=== PATIENT | male | born 1970 | race Caucasian/White ===

== ENCOUNTER 2019-08-18 02:28 | Inpatient (IN) | payer OTHER ==
[~2019-08-18] VITALS: Ht 182.9 cm; Wt 99.4 kg
[2019-08-18 02:32] VITALS: BP 136/88
[2019-08-18 03:33] LABS: ABSOLUTE BASOPHILS 0.1 thou/uL (0.0-0.2); ABSOLUTE EOSINOPHILS 0.1 thou/uL (0.0-0.7); ABSOLUTE MONOCYTES 1.1 thou/uL (0.0-1.2); ABSOLUTE NEUTROPHILS 13.6 thou/uL (1.6-8.1); BASOPHILS 0.7 %; EOSINOPHILS 0.8 %; HEMATOCRIT 47.7 % (42.0-52.0); HEMOGLOBIN 16.5 gm/dL (14.0-18.0); LYMPHOCYTES 11.6 %; MCH 31.2 pg (26.0-34.0); MCHC 34.5 g/dL (28.0-37.0); MCV 90.4 fL (80.0-100.0); MONOCYTES 6.7 %; MPV 9.3 fl. (7.2-11.1); NUCLEATED RBCS 0 /100WBC; PLATELET COUNT* 243 thou/uL (150-400); POLYS 80.2 %; RBC 5.28 mil/uL (4.50-6.00); RDW-CV 14.2 % (10.5-14.5); WBC 16.9 thou/uL (4.0-11.0)
[2019-08-18 03:34] LABS: CALCIUM 8.2 mg/dL (8.5-10.1); CREATININE 1.3 mg/dL (0.6-1.3); POTASSIUM 3.9 mmol/L (3.5-5.1)
[2019-08-18 03:39] LABS: ALBUMIN 3.5 g/dL (3.4-5.0); TOTAL BILIRUBIN 0.3 mg/dL (<0.1-1.0)
[2019-08-18 06:48] LABS: URINE BILIRUBIN NEGATIVE (Negative); URINE BLOOD NEGATIVE (Negative); URINE CLARITY CLEAR; URINE COLOR YELLOW; URINE GLUCOSE-RANDOM NEGATIVE (Negative); URINE KETONES NEGATIVE (Negative); URINE LEUKOCYTES-REFLEX NEGATIVE (Negative); URINE NITRITE-REFLEX NEGATIVE (Negative); URINE PROTEIN NEGATIVE (Negative); URINE UROBILINOGEN 0.2 E.U./dl (0.2-1.0)
--- NOTE | 2019-08-18 08:52 | EKG ---
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
[2019-08-18 09:10] VITALS: BP 111/72; BP 120/84
--- NOTE | 2019-08-18 17:47 | NUR ---
PATIENT RESTING IN BED. PATIENT IS UP WITH STANDBY ASSIST TO BATHROOM. PATIENT HAS LAP APPENDECTOMY TODAY WITHOUT INCIDENT. PATIENT HAS SHAUNA DRAIN WITH SMALL AMOUNT OF SS DRAINAGE. PATIENT IS TOLERATING CLEAR LIQUID DIET. PATIENT HAS COMPLAINTS OF PAIN TREATED ADEQUATELY WITH MEDICATION. PATIENT DENIES ANY NEEDS AT THIS TIME. CALL LIGHT WITHIN REACH.
[2019-08-18 18:58] VITALS: BP 118/76
[2019-08-18 20:00] VITALS: BP 123/80
[2019-08-19] VITALS: BP 112/82
--- NOTE | 2019-08-19 04:10 | NUR ---
ASSUMED CARE OF PT AFTER REPORT AT 1930. PT A&OX4. VSS. PHYSICAL ASSESSMENT COMPLETED AND CHARTED. PT ON O2 AT 3L NC. PT ON MEDSURG STATUS. PT UPSTANDBY. PT COMPLAINED OF ABDOMINAL PAIN-MED GIVEN PER JUN. MAINTAINED ON CLEAR LIQUID DIET. CALL LIGHT WITHIN REACH.
[2019-08-19 05:30] LABS: HEMATOCRIT 41.4 % (42.0-52.0); MCH 30.8 pg (26.0-34.0); MCHC 33.8 g/dL (28.0-37.0); MCV 91.1 fL (80.0-100.0); MPV 8.8 fl. (7.2-11.1); NUCLEATED RBCS 0 /100WBC; PLATELET COUNT* 208 thou/uL (150-400); RBC 4.55 mil/uL (4.50-6.00); RDW-CV 14.2 % (10.5-14.5); WBC 15.8 thou/uL (4.0-11.0)
[2019-08-19 06:59] LABS: ABSOLUTE LYMPHOCYTES 2.7 thou/uL (0.8-5.3); ABSOLUTE MONOCYTES 0.5 thou/uL (0.0-1.2); ABSOLUTE NEUTROPHILS 12.6 thou/uL (1.6-8.1)
[2019-08-19 07:00] LABS: PLATELET ESTIMATE ADEQUATE
[2019-08-19 08:15] VITALS: BP 121/67
--- NOTE | 2019-08-19 08:58 | OP ---
[facility] [address] [place] [address] OPERATIVE REPORT Name: KATRINA WALL Room: [address] IN M.R.#: [id number] Admission: 08/18/19 Attend Phys: Liliana De Dios DO Discharge: Date of : 68 Report #: [id number] THIS REPORT FOR: //name// cc: TANNER Chavez family physician/PCP TANNER Chavez family physician/PCP ~ THIS REPORT FOR: //name// CC: Liliana HART physician/PCP DICTATED BY: Tk Garza DO DATE OF SERVICE: 08/18/2019 PREOPERATIVE DIAGNOSIS: Acute appendicitis. POSTOPERATIVE DIAGNOSIS: Acute appendicitis. SURGEON: Liliana De Dios DO CLINICAL MEDICAL TRANSCRIPTIONIST: Tk Garza, PGY4. OPERATION PERFORMED: Laparoscopic appendectomy. ANESTHESIA: General and local. ESTIMATED BLOOD LOSS: 10 mL. SPECIMEN: Appendix. COMPLICATIONS: None. TUBES: 15-Qatari SHAUNA drain placed. INDICATIONS: The patient is a 49-year-old male who presented with several hours of abdominal pain localized to the right lower quadrant. He had a leukocytosis. CT scan demonstrated acute appendicitis. He was informed of the risks and benefits of this procedure and decided to proceed with surgery. DESCRIPTION OF PROCEDURE: After informed consent was obtained, the patient was brought to the operating room and placed in the supine position. SCDs were on and running. The patient received a dose of Zosyn in preop. General anesthesia was administered. The patient was intubated without difficulty. He was prepped and draped in the usual sterile fashion. A surgical pause was held to confirm proper patient and procedure. Infraumbilical skin was elevated and anesthetized with 0.5% Marcaine, incised with an 11 blade. Dissection was bluntly carried [facility] [address] [place] [address] OPERATIVE REPORT Name: KATRINA WALL Room: [address] IN .R.#: [id number] Admission: 08/18/19 Attend Phys: Liliana De Dios DO Discharge: Date of : 68 Report #: [id number] down until the fascia was identified. This was elevated with 2 Kochers and incised using cautery. Peritoneum was bluntly entered using a Alesia. A 0 Vicryl was used as a stay stitch on either side of the fascia. Lori trocar was introduced. Abdomen was insufflated. Brief exploration of the abdomen was undertaken. There were no abnormalities in the upper quadrants; however, in the pelvis and in the right lower quadrant, there was purulent fluid. A 5 mm port was placed in the left lower quadrant under direct visualization as well as the suprapubic region. Laparoscopic Babcocks were used to sweep the small bowel out of the way. The patient was positioned head down and left side down. The appendix was identified and noted to be curled on itself and densely adherent to surrounding tissues. A suction microsystems engineer was used to bluntly sweep away the appendix from surrounding tissues. The denser bands of adhesions were taken down using hook cautery. This method of dissection using blunt sweeping with the suction microsystems engineer was used extensively until the base of the appendix was mostly dissected free. The mesentery was mostly obliterated; however, what appeared to be the appendiceal artery, was isolated and a white load 45 mm [employer] stapler was fired across this. At this point, the appendix became loose from the cecum without clear visualization of the base. Further dissection was carried down and it seemed that the base was previously obliterated or included in the portion of the staple line. A small stump of appendix was elevated and a 45 mm purple load was fired across this. This portion of the specimen was also included with sent specimen. The surrounding cecum appeared healthy. The staple lines were hemostatic. The right lower quadrant and pelvis were thoroughly suctioned and irrigated, and continued to be dry. A 15-Qatari SHAUNA drain was placed through the suprapubic incision into the right lower quadrant. The abdomen was desufflated. The left lower quadrant port was removed under direct visualization. The appendix, that was placed within an EndoCatch bag, was removed through the umbilicus. Lori port was removed. Previous stay sutures were replaced with Kochers. A single of [id number] using 0 Vicryl was used to approximate the fascia at the umbilicus. Skin was closed using 4-0 Monocryl. The drain stitch was a 2-0 nylon. Wounds were cleansed and dressed with Mastisol, Steri-Strips, 4 x 4's, and Tegaderms. All counts were correct. The patient tolerated the procedure well and was transferred to the PACU in stable condition. <ELECTRONICALLY SIGNED> By: Liliana De Dios DO 08/19/19 0858 1339 1413Cdiana De Dios DO /nt
[2019-08-19 12:00] VITALS: BP 133/73
[2019-08-19 12:18] VITALS: BP 133/73
[2019-08-19] MEDS ORDERED: AUGMENTIN 875-1 EACH PO (12:51)
[2019-08-19] MEDS ORDERED: OXYCODONE HCL 55 MG PO (12:52)
--- NOTE | 2019-08-19 13:33 | NUR ---
DISCHARGED IN STABLE CONDITION. DISCHARGE INSTRUCTIONS, WOUND CARE INSTRUCTIONS AND RXS SENT WITH PATIENT. VERBALIZES UNDERSTANDING.
== END 2019-08-19 13:23 | disposition home or self-care (01) | DRG 343 ==
LOC: M.ERS 02:28 → M.TBA-ER 05:27 → M.2W 05:27
PROVIDERS: Personal Emergency Response Attendant; ADMIT Surgery
PROC: 0DTJ4ZZ Resection of Appendix, Percutaneous Endoscopic Approach (ICD-10-PCS; principal; 2019-08-18)
DX: K35.80 Unspecified acute appendicitis (principal); F17.210 Nicotine dependence, cigarettes, uncomplicated; F12.90 Cannabis use, unspecified, uncomplicated; Z83.3 Family history of diabetes mellitus; Z79.899 Other long term (current) drug therapy

== ENCOUNTER 2019-08-22 17:49 | Inpatient (IN) | payer OTHER ==
[~2019-08-22] VITALS: Ht 182.9 cm; Wt 93.9 kg
[~2019-08-22 17:49] MED LIST: AUGMENTIN 875-1 EACH PO; OXYCODONE HCL 55 MG PO
[2019-08-22 18:01] VITALS: BP 137/94
[2019-08-22 18:17] LABS: ABSOLUTE BASOPHILS 0.2 thou/uL (0.0-0.2); ABSOLUTE EOSINOPHILS 0.2 thou/uL (0.0-0.7); ABSOLUTE LYMPHOCYTES 1.2 thou/uL (0.8-5.3); ABSOLUTE MONOCYTES 1.3 thou/uL (0.0-1.2); ABSOLUTE NEUTROPHILS 12.5 thou/uL (1.6-8.1); EOSINOPHILS 1.4 %; HEMATOCRIT 51.3 % (42.0-52.0); HEMOGLOBIN 17.8 gm/dL (14.0-18.0); LYMPHOCYTES 7.9 %; MCHC 34.8 g/dL (28.0-37.0); MCV 89.1 fL (80.0-100.0); MONOCYTES 8.6 %; MPV 8.8 fl. (7.2-11.1); NUCLEATED RBCS 0 /100WBC; PLATELET COUNT* 312 thou/uL (150-400); POLYS 81.1 %; RBC 5.75 mil/uL (4.50-6.00); RDW-CV 13.4 % (10.5-14.5); WBC 15.5 thou/uL (4.0-11.0)
[2019-08-22 18:26] LABS: CALCIUM 8.4 mg/dL (8.5-10.1); POTASSIUM 3.9 mmol/L (3.5-5.1)
[2019-08-22 18:38] LABS: ALBUMIN 2.7 g/dL (3.4-5.0); TOTAL BILIRUBIN 0.6 mg/dL (<0.1-1.0); TOTAL PROTEIN 7.6 g/dL (6.4-8.2)
[2019-08-22 19:55] LABS: URINE BILIRUBIN NEGATIVE (Negative); URINE BLOOD NEGATIVE (Negative); URINE CLARITY CLEAR; URINE COLOR YELLOW; URINE GLUCOSE-RANDOM NEGATIVE (Negative); URINE KETONES 2+ (Negative); URINE LEUKOCYTES-REFLEX NEGATIVE (Negative); URINE NITRITE-REFLEX NEGATIVE (Negative); URINE PROTEIN NEGATIVE (Negative); URINE SPECIFIC GRAVITY <= 1.005 (1.005-1.030); URINE UROBILINOGEN 0.2 E.U./dl (0.2-1.0)
[2019-08-22 21:30] VITALS: BP 98/62
--- NOTE | 2019-08-22 21:30 | NUR ---
RN THAT IS TAKING PT STATED HE NEEDED 10 MINUTES PRIOR TO REPORT.
[2019-08-23 05:36] LABS: MCH 31.1 pg (26.0-34.0); MCHC 34.2 g/dL (28.0-37.0); MCV 90.8 fL (80.0-100.0); MPV 8.4 fl. (7.2-11.1); RBC 4.84 mil/uL (4.50-6.00); RDW-CV 13.4 % (10.5-14.5); WBC 10.2 thou/uL (4.0-11.0)
[2019-08-23 05:41] LABS: HEMOGLOBIN 15.1 gm/dL (14.0-18.0)
[2019-08-23 06:17] LABS: ALBUMIN 2.3 g/dL (3.4-5.0); POTASSIUM 3.2 mmol/L (3.5-5.1); TOTAL BILIRUBIN 0.6 mg/dL (<0.1-1.0); TOTAL PROTEIN 6.3 g/dL (6.4-8.2)
--- NOTE | 2019-08-23 06:22 | NUR ---
PATIENT ARRIVED ON UNIT AT 2145 FROM ED. ORDERED MEDICATIONS NOT ADMINISTERED IN ER, STARTED ON UNIT. PATIENT RESTING IN BED USING INCENTIVE SPIROMETER Q1H. PATIENT'S SURGICAL INCISIONS COVERED WITH STERI-STRIPS, SHAUNA DRAIN IN PLACE AND DRAINING WELL. FLUIDS AND ANTIBIOTICS INFUSING. PAIN WELL CONTROLLED. PATIENT REFUSED ADDITIONAL SCHEDULED PAIN MEDICATION. MED SURG STATUS
[2019-08-23 07:44] LABS: MAGNESIUM 2.1 mg/dL (1.8-2.4)
[2019-08-23 08:00] VITALS: BP 118/84
--- NOTE | 2019-08-23 14:58 | EKG ---
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 /EPI
[2019-08-23 16:00] VITALS: BP 121/75
--- NOTE | 2019-08-23 16:51 | NUR ---
SPOKE WITH . PT.LIVES WITH HER IN A MOBILE HOME. IS NORMALLY INDEPENDENT. RECENTLY HAD A LAP APPY. HASN'T FELT WELL SINCE THEN, SHE STATED. USES NO DME AT HOME. IS PT.PAY. TOLD ,ABOUT [employer]. THEY WILL SCRREN HIM TO SEE IF HE WOULD QUALIFY FOR MEDICAID.
--- NOTE | 2019-08-23 18:10 | NUR ---
PT HAS BEEN RESTING TODAY. PT HAS NOT HAD MUCH OF AN APPETITE. DENIES PAIN BUT C/O NAUSEA. 150 SEROUS DRAINAGE OUT OF SHAUNA TO LLQ. PT DID HAVE LOOSE BM TODAY. COUGH STILL PRODUCTIVE CLEAR. TESSALON PERLES HELP SOME. VSS ON RA. PT TOLERATING DIET APPROPRIATELY.
[2019-08-23 20:30] VITALS: BP 136/84
[2019-08-24 05:59] LABS: ABSOLUTE BASOPHILS 0.1 thou/uL (0.0-0.2); ABSOLUTE EOSINOPHILS 0.6 thou/uL (0.0-0.7); ABSOLUTE LYMPHOCYTES 1.7 thou/uL (0.8-5.3); ABSOLUTE NEUTROPHILS 6.1 thou/uL (1.6-8.1); BASOPHILS 0.8 %; EOSINOPHILS 6.4 %; HEMATOCRIT 39.9 % (42.0-52.0); HEMOGLOBIN 13.6 gm/dL (14.0-18.0); LYMPHOCYTES 17.8 %; MCH 30.6 pg (26.0-34.0); MCHC 34.1 g/dL (28.0-37.0); MCV 89.9 fL (80.0-100.0); MONOCYTES 10.2 %; MPV 9.1 fl. (7.2-11.1); NUCLEATED RBCS 0 /100WBC; PLATELET COUNT* 269 thou/uL (150-400); POLYS 64.8 %; RBC 4.44 mil/uL (4.50-6.00); RDW-CV 13.5 % (10.5-14.5); WBC 9.3 thou/uL (4.0-11.0)
[2019-08-24 06:14] LABS: CALCIUM 7.8 mg/dL (8.5-10.1); CREATININE 0.9 mg/dL (0.6-1.3); MAGNESIUM 1.7 mg/dL (1.8-2.4); POTASSIUM 3.4 mmol/L (3.5-5.1)
--- NOTE | 2019-08-24 07:10 | NUR ---
PT A+OX4. MINIMAL PAIN REPORTED. PT REPORTED 2 LOOSE BMS THIS SHIFT. MILD DISCOMFORT DURING BM ONLY. PT CAME BACK NEGATIVE FOR COVID PER TEST THIS AM. PT STILL REPORTS PRODUCTIVE COUGH- THICK WHITE MUCUS. ABLE TO GET SOME REST. CALL LIGHT IN REACH. HOURLY ROUNDING FOR SAFETY.
[2019-08-24 08:20] VITALS: BP 140/77
--- NOTE | 2019-08-24 16:01 | NUR ---
ASSUMED CARE OF THE PT @ 0700. PT IS A/OX4. DENIES PAIN. MID ADBOMEN AND LLQ LAP INCISION WELL APPROXIMATED WITH STERI STRIP. PT IS TOLERATING A FULL LIQUID DIET. SOME NAUSEA THE AM THAT HAS RESOLVED. DENIES THE NEED FOR NAUSEA MEDS. LT AC IV LEAKING NEW IV PLACED IN LT HAND INFUSING 1/2 NS @ 42 CC/HR. CONTINUES ON IV ABTS.TOLERATING WELL. PT UP AD GIULIANA TO BATHROOM. ORDER FOR REGULAR DIET FOR DINNER.PT TO BE DISCHARGE IF TOLERATING REGULAR DIET. SHAUNA DRAIN INTACT TO MID PUBIC AREA. DRAINING SM AMTS OF SEROSANGINOUS FLUID. RESTING QUIETLY IN BED AT THIS TIME WITH CALL LIGHT IN REACH. BED LOW AND LOCKED. WILL CONTINUE TO OMNITOR.
[2019-08-24 18:26] VITALS: BP 140/77
--- NOTE | 2019-08-24 19:55 | NUR ---
PATIENT GIVEN DISCHARGE ORDERS AND PAPERWORK BY NATASHA BRADSHAW DAY SHIFT RN. CAME BY PERSONAL CAR TO TAKE PATIENT HOME. PT ESCORTED OUT BY STAFF VIA W/CHAIR AT 1930.
== END 2019-08-24 19:30 | disposition home or self-care (01) | DRG 388 ==
LOC: M.ERS 17:49 → M.ORTHSURG 19:51 → M.TBA-ER 19:51 → M.ORTHSURG 21:30
PROVIDERS: Family Medicine; ADMIT Surgery
DX: K56.7 Ileus, unspecified (principal); J18.9 Pneumonia, unspecified organism; E86.0 Dehydration; G47.00 Insomnia, unspecified; Z20.828 Contact with and (suspected) exposure to other viral communicable diseases; Z90.49 Acquired absence of other specified parts of digestive tract; Z79.899 Other long term (current) drug therapy

== ENCOUNTER 2019-09-07 11:57 | Observation (INO) | payer OTHER ==
[~2019-09-07] VITALS: Ht 182.9 cm; Wt 88.9 kg
[2019-09-07 12:02] VITALS: BP 138/101
[2019-09-07 12:29] LABS: ABSOLUTE BASOPHILS 0.2 thou/uL (0.0-0.2); ABSOLUTE EOSINOPHILS 0.3 thou/uL (0.0-0.7); ABSOLUTE LYMPHOCYTES 2.9 thou/uL (0.8-5.3); ABSOLUTE NEUTROPHILS 10.4 thou/uL (1.6-8.1); BASOPHILS 1.4 %; EOSINOPHILS 1.9 %; HEMATOCRIT 48.9 % (42.0-52.0); HEMOGLOBIN 16.6 gm/dL (14.0-18.0); LYMPHOCYTES 19.3 %; MCH 30.4 pg (26.0-34.0); MCHC 33.9 g/dL (28.0-37.0); MCV 89.8 fL (80.0-100.0); MONOCYTES 6.9 %; MPV 8.8 fl. (7.2-11.1); NUCLEATED RBCS 0 /100WBC; PLATELET COUNT* 403 thou/uL (150-400); POLYS 70.5 %; RBC 5.45 mil/uL (4.50-6.00); RDW-CV 13.5 % (10.5-14.5); WBC 14.8 thou/uL (4.0-11.0)
[2019-09-07 12:29] LABS: URINE BLOOD NEGATIVE (Negative); URINE CLARITY CLEAR; URINE COLOR YELLOW; URINE GLUCOSE-RANDOM NEGATIVE (Negative); URINE KETONES NEGATIVE (Negative); URINE LEUKOCYTES-REFLEX NEGATIVE (Negative); URINE NITRITE-REFLEX NEGATIVE (Negative); URINE PROTEIN NEGATIVE (Negative); URINE SPECIFIC GRAVITY >= 1.030 (1.005-1.030); URINE UROBILINOGEN 0.2 E.U./dl (0.2-1.0)
[2019-09-07 12:32] LABS: ICTOTEST (BILI CONFIRMATORY) Negative (Negative); URINE BILIRUBIN 2+ (Negative)
[2019-09-07 12:33] LABS: CALCIUM 8.8 mg/dL (8.5-10.1)
[2019-09-07 12:46] LABS: ALBUMIN 3.5 g/dL (3.4-5.0); TOTAL BILIRUBIN 0.5 mg/dL (<0.1-1.0); TOTAL PROTEIN 7.8 g/dL (6.4-8.2)
[2019-09-07 14:48] VITALS: BP 122/84
--- NOTE | 2019-09-07 15:37 | EKG ---
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 : 1970 Requested By: Merline Kerr Order Number: [id number] MD: Toan Browne Measurements Intervals [place] Rate: 66 P: 44 DC: 183 QRS: 47 QRSD: 102 T: 21 QT: 421 QTc: 442 Interpretive Statements Sinus rhythm Abnormal R-wave progression, early transition Inferior infarct, old possible Baseline wander in lead(s) V2 Compared to ECG 08/22/2019 18:03:42 Myocardial infarct finding now present Electronically Signed On 09-07-2019 15:35:37 CDT by Toan Browne [email or web address] <ELECTRONICALLY SIGNED> By: Toan Browne MD, FACC 09/07/19 1535 1356 1356 Toan Browne MD, FAC /EPI
[2019-09-07 20:00] VITALS: BP 131/86
[2019-09-08 06:11] LABS: HEMATOCRIT 42.1 % (42.0-52.0); MCH 30.2 pg (26.0-34.0); MCHC 33.4 g/dL (28.0-37.0); MCV 90.5 fL (80.0-100.0); MPV 9.2 fl. (7.2-11.1); RBC 4.65 mil/uL (4.50-6.00); RDW-CV 13.7 % (10.5-14.5); WBC 9.4 thou/uL (4.0-11.0)
[2019-09-08 06:15] LABS: HEMOGLOBIN 14.1 gm/dL (14.0-18.0)
[2019-09-08 06:25] LABS: ALBUMIN 2.7 g/dL (3.4-5.0); CALCIUM 8.2 mg/dL (8.5-10.1); TOTAL BILIRUBIN 0.5 mg/dL (<0.1-1.0); TOTAL PROTEIN 6.1 g/dL (6.4-8.2)
[2019-09-08 07:45] VITALS: BP 121/76
[2019-09-08] MEDS ORDERED: FLAGYL500 M1 PO (10:57)
[2019-09-08] MEDS ORDERED: CIPRO500 M1 PO (10:57)
[2019-09-08 11:03] VITALS: BP 121/76
== END 2019-09-08 13:15 | disposition home or self-care (01) ==
LOC: M.ERS 11:57 → M.3W 13:46 → M.TBA-ER 13:46 → M.3W 14:56
PROVIDERS: Nurse Practitioner Family; ADMIT Internal Medicine
DX: K52.9 Noninfective gastroenteritis and colitis, unspecified (principal); E86.0 Dehydration

== ENCOUNTER 2020-02-02 10:34 | Emergency (ER) | payer OTHER ==
[~2020-02-02] VITALS: Ht 182.9 cm; Wt 90.7 kg
[~2020-02-02 10:34] MED LIST changes: +CIPRO500 M1 PO; +FLAGYL500 M1 PO
[2020-02-02] MEDS ORDERED: ADVIL200 M3 PO (10:43)
[2020-02-02 12:11] VITALS: BP 133/89
== END 2020-02-02 12:11 | disposition home or self-care (01) ==
LOC: M.ERS 10:34
DX: R51.9 Headache, unspecified (principal); F17.210 Nicotine dependence, cigarettes, uncomplicated; Z90.49 Acquired absence of other specified parts of digestive tract

== ENCOUNTER 2020-04-05 09:16 | Observation (INO) | payer OTHER ==
[~2020-04-05] VITALS: Ht 182.9 cm; Wt 87.1 kg
[~2020-04-05 09:16] MED LIST changes: +ADVIL200 M3 PO
[2020-04-05 09:22] VITALS: BP 115/79
[2020-04-05] MEDS ORDERED: LISINOPRIL2.5 MG PO (09:23)
[2020-04-05 09:42] LABS: ABSOLUTE BASOPHILS 0.1 thou/uL (0.0-0.2); ABSOLUTE EOSINOPHILS 0.5 thou/uL (0.0-0.7); ABSOLUTE LYMPHOCYTES 3.3 thou/uL (0.8-5.3); ABSOLUTE MONOCYTES 0.7 thou/uL (0.0-1.2); ABSOLUTE NEUTROPHILS 8.4 thou/uL (1.6-8.1); EOSINOPHILS 3.5 %; HEMATOCRIT 43.6 % (42.0-52.0); HEMOGLOBIN 14.7 gm/dL (14.0-18.0); LYMPHOCYTES 25.5 %; MCHC 33.7 g/dL (28.0-37.0); MCV 91.8 fL (80.0-100.0); MONOCYTES 5.6 %; MPV 8.7 fl. (7.2-11.1); NUCLEATED RBCS 0 /100WBC; PLATELET COUNT* 267 thou/uL (150-400); POLYS 64.4 %; RBC 4.74 mil/uL (4.50-6.00); RDW-CV 14.2 % (10.5-14.5); WBC 13.1 thou/uL (4.0-11.0)
[2020-04-05 09:54] LABS: APTT 28.3 Seconds (25.0-31.3); PROTIME 10.4 Seconds (9.20-11.50)
[2020-04-05 10:02] LABS: ALBUMIN 3.6 g/dL (3.4-5.0); CALCIUM 8.6 mg/dL (8.5-10.1); CREATININE 1.5 mg/dL (0.6-1.3); POTASSIUM 4.6 mmol/L (3.5-5.1); TOTAL BILIRUBIN 0.3 mg/dL (<0.1-1.0); TOTAL PROTEIN 7.1 g/dL (6.4-8.2)
[2020-04-05 15:44] VITALS: BP 114/67
[2020-04-05 16:42] VITALS: BP 114/67
--- NOTE | 2020-04-05 17:11 | EKG ---
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: ANNA : 1970 Requested By: Bjorn Finney Order Number: [id number] MD: Caesar Mcdaniels Measurements Intervals [place] Rate: 83 P: 100 TN: 159 QRS: 64 QRSD: 104 T: 47 QT: 388 QTc: 456 Interpretive Statements Sinus rhythm Low voltage, precordial leads Baseline wander in lead(s) I,aVL Compared to ECG 09/07/2019 13:56:14 Low QRS voltage now present Electronically Signed On 04-05-2020 17:11:06 THIMBLE PRESS OPERATOR by Caesar Mcdaniels [email or web address] <ELECTRONICALLY SIGNED> By: Caesar Mcdaniels MD, [facility] 04/05/20 1711 9 9 Caesar Mcdaniels MD, [facility] /EPI
[2020-04-05 17:39] VITALS: BP 116/74
[2020-04-05 20:00] VITALS: BP 122/73
[2020-04-06] VITALS: BP 114/71
[2020-04-06 04:00] VITALS: BP 105/55
[2020-04-06 04:32] LABS: HEMOGLOBIN 14.4 gm/dL (14.0-18.0); MCH 30.9 pg (26.0-34.0); MCHC 33.4 g/dL (28.0-37.0); MCV 92.6 fL (80.0-100.0); MPV 8.6 fl. (7.2-11.1); RBC 4.65 mil/uL (4.50-6.00); WBC 8.1 thou/uL (4.0-11.0)
[2020-04-06 05:10] LABS: ANION GAP 8 mmol/L (7-16); BUN 16 mg/dL (7-18); CALCIUM 9.2 mg/dL (8.5-10.1); CHLORIDE 106 mmol/L (98-107); CO2 26 mmol/L (21-32); CREATININE 1.3 mg/dL (0.6-1.3); GLUCOSE 77 mg/dL (70-99); POTASSIUM 4.7 mmol/L (3.5-5.1); SODIUM 140 mmol/L (136-145); TROPONIN-I LEVEL <0.06 ng/mL (<0.06)
[2020-04-06 08:15] VITALS: BP 108/73
[2020-04-06 12:00] VITALS: BP 116/78
[2020-04-06] MEDS ORDERED: ASPIRIN325 PO (12:55)
[2020-04-06] MEDS ORDERED: ADVIL200 M3 PO (12:56)
--- NOTE | 2020-04-06 13:04 | H ---
[facility] [address] [place] [address] HISTORY AND PHYSICAL Name: KATRINA WALL Room: [address] Eddie Ceballos#: [id number] Admission: 04/05/20 Attend Phys: Isaac Paul, Discharge: Date of : 68 Report #: [id number] THIS REPORT FOR: cc: Tracey Ortiz Angela Jo RNP ~ Caesar Mcdaniels MD [facility] DATE OF SERVICE: 04/05/2020 HISTORY OF PRESENT ILLNESS: The patient is a 50-year-old white male who I was asked to see in the Emergency Room today after complaining of chest pain. The history is obtained from the patient and his who is present. The patient has been here to [place] before. He was here in July of this year with abdominal pain. He was found to have acute appendicitis. He had an appendectomy performed. The patient states that recently, he was found to have high blood pressure, started on medications. He has had occasional chest pain in the past. He was referred to the Cardiology Clinic in [place], [place] recently. He was scheduled for a stress echocardiogram, which was performed 2 days ago in [place]. He denied chest pain on the treadmill. He was scheduled to return to see a audioprosthologist next month in [place]. He states he awakened this morning with a sharp pain in the left side of his chest, became somewhat diaphoretic. He has had some intermittent left arm pain. Denied any shortness of breath or nausea. He denied the pain being related to any food. He had no belching. He has had no bleeding. Denied any fever. He does have occasional cough. Denied any trauma to his chest. There is no rash. PAST MEDICAL HISTORY: Otherwise significant for surgery on his right arm. He has been told in the past he had high cholesterol. CURRENT MEDICATIONS: Include lisinopril. ALLERGIES: He has no known drug allergies. FAMILY HISTORY: His father had heart attack. SOCIAL HISTORY: He is . He and his live in [place], [place]. He works at a [employer] course. He smokes one-half pack of cigarettes a day. No alcohol abuse. He does smoke marijuana. Unfortunately, he has no medical insurance. REVIEW OF SYSTEMS: No history of stroke, asthma, liver disease, kidney disease, cancer, chronic skin condition, psychiatric illness. PHYSICAL EXAMINATION: GENERAL: Revealed a middle-aged male, who appeared in no distress. VITAL SIGNS: He had a blood pressure of 120/80, pulse 70, he is afebrile. HEENT: He was anicteric. Conjunctivae pink. [place] [address] HISTORY AND PHYSICAL Name: KATRINA WALL Room: [address] Tucker#: [id number] Admission: 04/05/20 Attend Phys: Isaac Paul, Discharge: Date of : 68 Report #: [id number] NECK: Veins nondistended. No carotid bruits. CHEST: Clear to auscultation. CARDIOVASCULAR: Regular rate and rhythm without murmurs. ABDOMEN: Soft. EXTREMITIES: Had no edema. Posterior tibial pulse 2+ bilaterally. SKIN: Cool and dry. NEUROLOGIC: Nonfocal. RADIOLOGICAL DATA: ECG showed a sinus rhythm without ST or T-wave change. The patient had CT scan of the head performed in January when he complained of a headache that showed small vessel changes, no acute abnormality. Chest x-ray in the Emergency Room today, normal heart size and clear lung saini. LABORATORY WORK: Sodium 139, creatinine 1.5. Lipase 613. Liver function studies were normal. His troponins all less than 0.06. BNP 19. White blood cell count 13.1, hemoglobin 14.7. His stat COVID antigen study not detected. IMPRESSION AND RECOMMENDATIONS: 1. Chest pain. Atypical for angina. No evidence of acute myocardial infarction. Before performing any additional test, I would await the results of the stress test that was done 2 days ago in [place], [place]. 2. Hypertension. The patient is on SHERI inhibitor. 3. Tobacco abuse. <ELECTRONICALLY SIGNED> By: Caesar Mcdaniels MD, FACC 04/06/20 1304 1248 1356Dahector Mcdaniels MD, FACC /nt
[2020-04-06 13:05] VITALS: BP 116/78
== END 2020-04-06 13:18 | disposition home or self-care (01) ==
LOC: M.ERS 09:16 → M.TBA-ER 11:04 → M.2W 17:04
PROVIDERS: Emergency Medicine Emergency Medical Services; ADMIT Family Medicine; ATTEND Family Medicine
DX: I20.9 Angina pectoris, unspecified (principal); D72.829 Elevated white blood cell count, unspecified; I10 Essential (primary) hypertension; F12.10 Cannabis abuse, uncomplicated; F17.210 Nicotine dependence, cigarettes, uncomplicated; Z79.899 Other long term (current) drug therapy; Z20.828 Contact with and (suspected) exposure to other viral communicable diseases

== ENCOUNTER 2021-02-17 10:33 | Inpatient (IN) | payer OTHER ==
[~2021-02-17] VITALS: Ht 182.9 cm; Wt 83.8 kg
[~2021-02-17 10:33] MED LIST changes: +ASPIRIN325 PO; +LISINOPRIL2.5 MG PO
[2021-02-17 10:42] VITALS: BP 194/124
[2021-02-17 11:35] LABS: HEMATOCRIT 46.6 % (42.0-52.0); HEMOGLOBIN 15.7 gm/dL (14.0-18.0); MCH 30.6 pg (26.0-34.0); MCHC 33.7 g/dL (28.0-37.0); MCV 90.8 fL (80.0-100.0); MPV 8.9 fl. (7.2-11.1); NUCLEATED RBCS 0 /100WBC; PLATELET COUNT* 259 thou/uL (150-400); RBC 5.13 mil/uL (4.50-6.00); RDW-CV 13.7 % (10.5-14.5); WBC 16.8 thou/uL (4.0-11.0)
[2021-02-17 11:39] LABS: CALCIUM 8.4 mg/dL (8.5-10.1); CREATININE 1.1 mg/dL (0.6-1.3); POTASSIUM 3.8 mmol/L (3.5-5.1)
[2021-02-17 11:43] LABS: ALBUMIN 3.2 g/dL (3.4-5.0); TOTAL BILIRUBIN 0.4 mg/dL (<0.1-1.0); TOTAL PROTEIN 7.4 g/dL (6.4-8.2)
[2021-02-17 12:07] LABS: ABSOLUTE MONOCYTES 0.2 thou/uL (0.0-1.2); ABSOLUTE NEUTROPHILS 14.6 thou/uL (1.6-8.1); PLATELET ESTIMATE ADEQUATE
[2021-02-17 13:11] LABS: URINE BILIRUBIN NEGATIVE (Negative); URINE BLOOD NEGATIVE (Negative); URINE CLARITY CLEAR; URINE COLOR YELLOW; URINE GLUCOSE-RANDOM NEGATIVE (Negative); URINE KETONES NEGATIVE (Negative); URINE LEUKOCYTES-REFLEX NEGATIVE (Negative); URINE NITRITE-REFLEX NEGATIVE (Negative); URINE PROTEIN NEGATIVE (Negative); URINE UROBILINOGEN 0.2 E.U./dl (0.2-1.0)
[2021-02-17 20:00] VITALS: BP 166/99
[2021-02-17 22:50] VITALS: BP 166/99
[2021-02-17 23:30] VITALS: BP 166/99
[2021-02-18 03:30] VITALS: BP 159/91
[2021-02-18 08:00] VITALS: BP 144/92
--- NOTE | 2021-02-18 10:02 | EKG ---
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: JESSY : 1970 Requested By: Claire Esquivel Order Number: [id number] MD: Zan Woodall Measurements Intervals [place] Rate: 77 P: 55 [place]: 165 QRS: 33 QRSD: 101 T: -7 QT: 434 QTc: 492 Interpretive Statements Sinus rhythm Probable left atrial enlargement Inferior infarct, age indeterminate Compared to ECG 04/05/2020 09:20:39 Myocardial infarct finding now present Electronically Signed On 02-18-2021 10:02:43 CDT by Zan Woodall [email or web address] <ELECTRONICALLY SIGNED> By: Kenyatta Woodall MD, [facility] 02/18/21 1002 1335 1335 Kenyatta Woodall MD, [facility] /EPI
[2021-02-18 12:00] VITALS: BP 192/116
[2021-02-18 14:30] VITALS: BP 160/92
[2021-02-18 16:00] VITALS: BP 180/100
[2021-02-18 20:00] VITALS: BP 147/96
[2021-02-19 00:30] VITALS: BP 120/71
[2021-02-19 04:21] VITALS: BP 130/76
[2021-02-19 04:30] LABS: HEMATOCRIT 40.9 % (42.0-52.0); HEMOGLOBIN 13.8 gm/dL (14.0-18.0); MCH 30.6 pg (26.0-34.0); MCHC 33.7 g/dL (28.0-37.0); MPV 8.3 fl. (7.2-11.1); RBC 4.5 mil/uL (4.50-6.00); RDW-CV 13.9 % (10.5-14.5); WBC 10.5 thou/uL (4.0-11.0)
[2021-02-19 04:52] LABS: ALBUMIN 2.3 g/dL (3.4-5.0); CREATININE 1.2 mg/dL (0.6-1.3); MAGNESIUM 1.9 mg/dL (1.8-2.4); POTASSIUM 3.7 mmol/L (3.5-5.1); TOTAL BILIRUBIN 0.4 mg/dL (<0.1-1.0); TOTAL PROTEIN 5.6 g/dL (6.4-8.2)
[2021-02-19 08:00] VITALS: BP 138/93
[2021-02-19 12:13] VITALS: BP 136/92
[2021-02-19 16:30] VITALS: BP 124/69
[2021-02-19 20:00] VITALS: BP 143/92
--- NOTE | 2021-02-19 20:07 | CON ---
[facility] [address] [place] [address] CONSULTATION Name: KATRINA WALL Room: [address] IN .R.#: [id number] Admission: 02/17/21 Attend Phys: Violet Lobo MD Discharge: Date of : 68 Report #: [id number] THIS REPORT FOR: cc: Tracey Ortiz Angela Jo RNP Vardakis, Gregory DO ~ cc: DIEGO Tinsley DATE OF CONSULTATION: 02/19/2021 Please note at the time of this dictation, the patient was seen and physically examined by myself. REASON FOR CONSULTATION: Uncontrollable diarrhea with some nausea and vomiting. HISTORY OF PRESENT ILLNESS: This is a 50-year-old male who states his diarrhea started last Friday. He does state he has had some bright red rectal bleeding associated with this. He states that it is very frequent. He does not know how many times, but it does wake him up at night as well. He initially started having some lower abdominal discomfort. Prior to all of these he states he was having some significant acid reflux issues associated with some nausea and vomiting with all of these as well. He does not take anything for reflux at the present time. He denies any difficulty swallowing or any early satiety. The patient has never had any endoscopic evaluation either upper or lower done in the past. The patient states he has history of C. diff last year. He denies being on any recent antibiotics at this time. The patient states his appetite has been a little decreased and his weight has been maintained to be fairly stable. ALLERGIES: No known drug allergies. MEDICATIONS FROM HOME: Include lisinopril and some aspirin. PAST MEDICAL HISTORY: Hypertension, arthritis, bulging disk in his back and seizures as a child. PAST SURGICAL HISTORY: He had a vein repair in his right arm secondary to trauma and an appendectomy. FAMILY HISTORY: Mother, breast cancer and maternal grandfather, colon cancer. SOCIAL HISTORY: Denies any alcohol use. He does smoke a pack of cigarettes per day and he uses marijuana on a daily basis as well. REVIEW OF SYSTEMS: Twelve-point review of [place] [address] CONSULTATION Name: KATRINA WALL Room: [address]#: [id number] Admission: 02/17/21 Attend Phys: Violet Lobo MD Discharge: Date of : 68 Report #: [id number] except what is mentioned in the HPI. PHYSICAL EXAMINATION: VITAL SIGNS: Temperature 37.3, pulse 74, respirations 18, blood pressure 138/93. HEART: Regular rate and rhythm. LUNGS: Clear. ABDOMEN: Soft, positive bowel sounds in all four quadrants with some abdominal tenderness noted, upper and lower. LABORATORY DATA: Hemoglobin is 13.8, white count is 10.5, platelets 198. GFR is 64. LFTs are completely normal. C. diff was negative; however, campylobacter, Shigella, and salmonella are still pending. IMPRESSION: 1. Diarrhea. 2. Bright red rectal bleeding. 3. Gastroesophageal reflux disease. 4. Abdominal discomfort, both upper and lower. 5. Family history of breast cancer and colon cancer. Maternal grandfather, colon cancer and mother, breast. 6. THC use on a regular basis. PLAN: 1. EGD, colonoscopy tomorrow with Dr. Hatfield. 2. Awaiting remaining stool studies. 3. Further recommendations to be made after Dr. Hatfield sees the patient later today. Thank you for allowing us to participate in this patient's care. Please do not hesitate to call with any questions in regard to this consult. <ELECTRONICALLY SIGNED> By: Luke Hatfield DO 02/19/212006 0947 1012Luke Hatfield DO /nt
[2021-02-20] VITALS: BP 145/90
[2021-02-20 04:00] VITALS: BP 157/85
[2021-02-20 05:00] LABS: PREALBUMIN 15.4 mg/dL (18.0-35.7)
[2021-02-20 05:20] LABS: ALBUMIN 2.6 g/dL (3.4-5.0); CALCIUM 8.1 mg/dL (8.5-10.1); POTASSIUM 3.4 mmol/L (3.5-5.1); TOTAL BILIRUBIN 0.3 mg/dL (<0.1-1.0); TOTAL PROTEIN 5.9 g/dL (6.4-8.2)
[2021-02-20 05:38] LABS: ABSOLUTE BASOPHILS 0.1 thou/uL (0.0-0.2); ABSOLUTE EOSINOPHILS 0.4 thou/uL (0.0-0.7); ABSOLUTE LYMPHOCYTES 2.2 thou/uL (0.8-5.3); ABSOLUTE MONOCYTES 0.8 thou/uL (0.0-1.2); ABSOLUTE NEUTROPHILS 4.8 thou/uL (1.6-8.1); BASOPHILS 1.2 %; HEMATOCRIT 40.7 % (42.0-52.0); HEMOGLOBIN 13.6 gm/dL (14.0-18.0); LYMPHOCYTES 26.4 %; MCH 30.4 pg (26.0-34.0); MCHC 33.3 g/dL (28.0-37.0); MCV 91.2 fL (80.0-100.0); MONOCYTES 9.8 %; MPV 8.7 fl. (7.2-11.1); NUCLEATED RBCS 0 /100WBC; PLATELET COUNT* 199 thou/uL (150-400); POLYS 57.6 %; RBC 4.46 mil/uL (4.50-6.00); RDW-CV 13.7 % (10.5-14.5); WBC 8.3 thou/uL (4.0-11.0)
[2021-02-20 07:18] LABS: ESR (SEDRATE) 17 mm/hr (0-20)
[2021-02-20 07:32] VITALS: BP 152/95
[2021-02-20] MEDS ORDERED: PROTONIX40 M2 PO (14:47)
[2021-02-20] MEDS ORDERED: BENTYL 10 MG CA10 MG PO (14:47)
[2021-02-20] MEDS ORDERED: FLAGYL500 M1 PO (14:47)
[2021-02-20] MEDS ORDERED: CIPRO500 M1 PO (14:47)
[2021-02-20 15:18] VITALS: BP 157/85
[2021-02-20 15:53] VITALS: BP 157/85
--- NOTE | 2021-02-22 16:06 | PATH ---
[facility] [address] [place] [address] PATHOLOGY RPT PROCEDURE Name: NICOLA WALL Room: [address] M.R.#: [id number] Admission: 02/17/21 Date of : 68 Discharge: 02/20/21 Report #: [id number] Path Case #: [id number] [facility] Accession Number: [id number] . 01 Material submitted: . PART A: stomach - ANTRAL BIOPSY FOR H. PYLORI. Modifiers: ANTRUM PART B: cecum - CECUM BIOPSY PART C: colon - PROXIMAL ASCENDING COLON ULCERS. Modifiers: proximal, ascending PART D: colon - ASCENDING COLON INFLAMMATION. Modifiers: ascending PART E: colon - TRANSVERSE COLON INFLAMMATION. Modifiers: transverse PART F: colon - DESCENDING COLON BIOPSY. Modifiers: descending PART G: colon - DESCENDING COLON POLYP. Modifiers: descending PART H: sigmoid colon - SIGMOID COLON INFLAMMATION PART I: rectum - RECTAL INFLAMMATION PART J: rectum - RECTAL POLYP . 01 Clinical history: . EGD AND COLONOSCOPY COLITIS, HYPERTENSIVE URGENCY . 02 Diagnosis: A. Antral biopsy: - Normal gastric antral mucosa, negative for Helicobacter pylori organisms. . B. Cecum biopsy: - Minimal active colitis with fresh hemorrhage, negative for granulomas, viral inclusions and dysplasia. See comment. . C. Proximal ascending colon ulcers: - Severe active colitis with ulceration, negative for granulomas, viral inclusions and dysplasia. See comment. . D, E, H and I. Ascending colon inflammation, transverse colon inflammation, sigmoid colon inflammation and rectal inflammation: - Superficial fresh hemorrhage in otherwise normal colonic mucosa. . F. Descending colon biopsy: - Focal active/minimal colitis, negative for granulomas, viral inclusions and dysplasia. See comment. . G. Descending colon polyp: - Tubular adenoma, negative for high-grade dysplasia. . J. Rectal polyp: - Hyperplastic polyp. . (ARNOLD:fernando; 02/22/2021) [place] [address] PATHOLOGY RPT PROCEDURE Name: NICOLA WALL Room: [address] IN .R.#: [id number] Admission: 02/17/21 Date of : 68 Discharge: 02/20/21 Report #: [id number] Path Case #: [id number] [facility] 02/22/2021 1114 Local . 02 Comment: None of the colonic biopsies show evidence of chronic inflammation such as basal lymphoplasmacytosis or crypt distortion and ischemic features are also not apparent. The proximal ascending colon ulcers biopsy (C) shows active colitis including a few crypt abscesses as well as karina ulceration and there is no visible inflammatory pseudomembrane and no definite fibrosis present. The histologic differential for the colonic biopsies includes infectious colitis as well as use of non-steroidal anti-inflammatory agents and although thought much less likely, Crohn's disease cannot be entirely excluded. (ARNOLD:skate boarder; 02/22/2021) . Special stain on A: H. pylori immuno . 02 Electronically signed: . Jerry Harrell MD, Pathologist NPI- [id number] . 01 Gross description: . A. The specimen is received in formalin, labeled "Long, Nicola, antral biopsy". Received is a segment of pale ventura tissue measuring 0.5 cm in maximum dimensions. The specimen is submitted entirely in cassette A1. . B. The specimen is received in formalin, labeled "Long, Nicola, cecum biopsy". Received are 2 segments of pale ventura tissue ranging in size from 0.3 to 0.4 cm in maximum dimensions. The specimen is submitted entirely in cassette B1. . C. The specimen is received in formalin, labeled "Long, Nicola, proximal ascending colon ulcers". Received are 2 segments of pale ventura tissue ranging in size from 0.3 to 0.4 cm in maximum dimensions. The specimen is submitted entirely in cassette C1. . D. The specimen is received in formalin, labeled "Long, Nicola, ascending colon inflammation". Received are 2 segments of pale ventura tissue ranging in size from 0.4 to 0.5 cm in maximum dimensions. The specimen is submitted entirely in cassette D1. . E. The specimen is received in formalin, labeled "Long, Nicola, transverse colon inflammation". Received are 2 segments of pale ventura tissue ranging in size from 0.4 to 0.5 cm in maximum dimensions. The specimen is submitted entirely in cassette E1. . F. The specimen is received in formalin, labeled "Long, Nicola, descending colon". Received are 2 segments of pale ventura tissue ranging in size from 0.3 to 0.4 cm in maximum dimensions. [place] [address] PATHOLOGY RPT PROCEDURE Name: NICOLA WALL Room: [address]#: [id number] Admission: 02/17/21 Date of : 68 Discharge: 02/20/21 Report #: [id number] Path Case #: [id number] entirely in cassette F1. . G. The specimen is received in formalin, labeled "Nicola Wall, descending colon polyp". Received is a segment of pale ventura tissue measuring 0.4 cm in maximum dimensions. The specimen is submitted entirely in cassette G1. . H. The specimen is received in formalin, labeled "Gerson, Nicola, sigmoid colon inflammation". Received are 2 segments of pale ventura tissue ranging in size from 0.3 to 0.4 cm in maximum dimensions. The specimen is submitted entirely in cassette H1. . I. The specimen is received in formalin, labeled "Gerson, Nicola, rectal inflammation". Received are 2 segments of pale ventura tissue ranging in size from 0.2 cm to 0.4 cm in maximum dimensions. The specimen is submitted entirely in cassette I1. . J. The specimen is received in formalin, labeled "Gerson, Nicola, rectal polyp". Received is a segment of pale ventura tissue measuring 0.5 cm in maximum dimensions. The specimen is submitted entirely in cassette J1.([facility]; 02/21/2021) [facility] 02/21/2021 1044 Local . 02 Pathologist provided ICD-10: K52.9, K63.3, K62.89, D12.4, K62.1 . 02 CPT . 266832, 454011, 949755, 526611, 254542, 739584, 203909, 421755, 562552, 771762, [id number] Specimen Comment: A courtesy copy of this report has been sent to [phone] Specimen Comment: [id number], Specimen Comment: Report sent to , DR WEBB / DR KWONG Performed at: [address] [facility] [address], [place], [place] [id number] MD Emre Greenfield MD Phone: [phone] Performed at: 02 [facility] [place] [address] [address], [place], [place] [id number] MD Jerry Harrell MD Phone: [phone]
== END 2021-02-20 15:50 | disposition home or self-care (01) | DRG 385 ==
LOC: M.ERS 10:33 → M.TBA-ER 13:23 → M.2W 13:23
PROVIDERS: Internal Medicine Gastroenterology; Physician Assistant; ADMIT Internal Medicine; ATTEND Internal Medicine
PROC: 0DBM8ZZ Excision of Descending Colon, Via Natural or Artificial Opening Endoscopic (ICD-10-PCS; principal; 2021-02-20)
PROC: 0DBE8ZX Excision of Large Intestine, Via Natural or Artificial Opening Endoscopic, Diagnostic (ICD-10-PCS; principal; 2021-02-20)
PROC: 0DB78ZX Excision of Stomach, Pylorus, Via Natural or Artificial Opening Endoscopic, Diagnostic (ICD-10-PCS; principal; 2021-02-20)
PROC: 0DBP8ZZ Excision of Rectum, Via Natural or Artificial Opening Endoscopic (ICD-10-PCS; principal; 2021-02-20)
DX: K51.00 Ulcerative (chronic) pancolitis without complications (principal); K29.71 Gastritis, unspecified, with bleeding; K22.11 Ulcer of esophagus with bleeding; I10 Essential (primary) hypertension; M19.90 Unspecified osteoarthritis, unspecified site; K52.9 Noninfective gastroenteritis and colitis, unspecified; I16.0 Hypertensive urgency; F17.210 Nicotine dependence, cigarettes, uncomplicated; F12.90 Cannabis use, unspecified, uncomplicated; F32.9 Major depressive disorder, single episode, unspecified; E86.0 Dehydration; K21.9 Gastro-esophageal reflux disease without esophagitis; K63.5 Polyp of colon; K44.9 Diaphragmatic hernia without obstruction or gangrene; Z20.822 Contact with and (suspected) exposure to COVID-19; Z90.49 Acquired absence of other specified parts of digestive tract; Z79.899 Other long term (current) drug therapy; Z28.21 Immunization not carried out because of patient refusal

== ENCOUNTER → 2021-05-14 | Outpatient (CLI) | payer OTHER, MEDICAID ==
[~2021-05-14] MED LIST changes: +BENTYL 10 MG CA10 MG PO; +PROTONIX40 M2 PO
== END ==
LOC: M.MRI 12:52
PROVIDERS: ATTEND Nurse Practitioner Family
DX: M47.815 Spondylosis without myelopathy or radiculopathy, thoracolumbar region (principal); M47.816 Spondylosis without myelopathy or radiculopathy, lumbar region; M51.26 Other intervertebral disc displacement, lumbar region; M51.27 Other intervertebral disc displacement, lumbosacral region; M48.061 Spinal stenosis, lumbar region without neurogenic claudication